=== PATIENT | female | born 1940 | race Caucasian/White ===

== ENCOUNTER → 2019-06-27 | Outpatient (CLI) | payer MEDICARE ==
[2014-12-23 18:32] VITALS: BP 172/82
[~2019-06-27] MED LIST: ASPI-482 PO
--- NOTE | 2019-06-27 09:13 | CARD ---
MR#: [id number] Date of Study: 06/27/2019 Ordering Physician: JOSIAH IBARRA, Referring Physician: JOSIAH IBARRA, Tech: Dayna Meehan APPROVED REPORT EXAM: Two-dimensional and M-mode echocardiogram with Doppler and color Doppler. Other Information Quality : AverageHR: 67bpm INDICATION Cardiac Disease: CAD Murmur 2D DIMENSIONS Left Atrium(2D)3.1 (1.6-4.0cm)IVSd1.1 (0.7-1.1cm) Aortic Root(2D)2.8 (2.0-3.7cm)LVDd3.7 (3.9-5.9cm) LVOT Diameter2.1 (1.8-2.4cm)PWd0.8 (0.7-1.1cm) LVDs3.0 (2.5-4.0cm)FS (%) 20.0 % SV24.4 mlLVEF(%)41.8 (>50%) Aortic Valve AoV Peak Jr.132.7cm/Gayr Peak GR.7.0mmHg Mitral Valve MV E Kudrzvmx58.0cm/sMV DECEL [id number] MV A Velocity0.4cm/sE/A Ehfkp297.0 MV A [id number] Pulmonary Valve PV Peak Syrrxtdd57.6cm/s Pulmonary Vein S1 Tegfsbdq56.7cm/sD2 Tbesqudg33.4cm/s PVa [id number] LEFT VENTRICLE The left ventricle is normal size. There is borderline to mild concentric left ventricular hypertroph y. The left ventricular systolic function is normal. The Ejection Fraction is 55%. There is normal LV segmental wall motion. Transmitral Doppler flow pattern is Grade II-pseudonormal filling dynamics. RIGHT VENTRICLE The right ventricle is normal size. There is normal right ventricular wall thickness. The right ventr icular systolic function is normal. ATRIA The left atrium size is normal. The right atrium size is normal. The interatrial septum is intact wit h no evidence for an atrial septal defect or patent foramen ovale as noted on 2-D or Doppler imaging. AORTIC VALVE The aortic valve is thickened but opens well. Doppler and Color Flow revealed no significant aortic r egurgitation. There is no significant aortic valvular stenosis. MITRAL VALVE The mitral valve is normal in structure and function. There is no evidence of mitral valve prolapse. There is no mitral valve stenosis. Doppler and Color-flow revealed mild mitral regurgitation. TRICUSPID VALVE The tricuspid valve is normal in structure and function. Doppler and Color Flow revealed no tricuspid valve regurgitation noted. There is no tricuspid valve stenosis. PULMONIC VALVE The pulmonic valve is not well visualized. Doppler and Color Flow revealed no pulmonic valvular regur gitation. GREAT VESSELS The aortic root is normal in size. The ascending aorta is normal in size. The IVC is normal in size a nd collapses >50% with inspiration. PERICARDIAL EFFUSION There is no evidence of significant pericardial effusion. Critical Notification Critical Value: No <Conclusion> The left ventricular systolic function is normal. The Ejection Fraction is 55%. There is normal LV segmental wall motion. Doppler and Color-flow revealed mild mitral regurgitation. There is no evidence of significant pericardial effusion. Signed by : David Quinn, Electronically Approved : 06/27/2019 09:12:53
== END ==
LOC: ECHO 07:47
PROVIDERS: ATTEND Internal Medicine Cardiovascular Disease
DX: I34.0 Nonrheumatic mitral (valve) insufficiency (principal); I25.10 Atherosclerotic heart disease of native coronary artery without angina pectoris; R01.1 Cardiac murmur, unspecified
CPT/HCPCS: 93306